=== PATIENT | male | born 1985 | race Caucasian/White ===

== ENCOUNTER 2016-09-20 02:33 | Emergency (ER) | payer OTHER ==
[~2016-09-20] VITALS: Ht 175.3 cm; Wt 83.9 kg
[~2016-09-20 02:33] MED LIST: AMOXICILLIN500 M3 PO; DIFLUCAN200 M1 PO; FLEXERIL10 MG PO; INVOKANA100 MG PO; MOTRIN800 MG PO; MULTIVITAMIN1 TAB PO; NEXIUM 40MG40 MG PO; PERCOCET 325 MG1 TA2 PO; PERCOCET 5-3251 EACH PO; VALIUM5 M1 PO; ZOFRAN ODT4 M1 PO; ZOFRAN ODT4 MG PO; ZOFRAN4 M2 PO
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
[2016-09-20] MEDS ORDERED: KEFLEX500 M1 PO (04:25)
[2016-09-20 04:32] VITALS: BP 134/67
== END 2016-09-20 04:35 ==
LOC: ERH 02:33
DX: S61.411A Laceration without foreign body of right hand, initial encounter (principal); W25.XXXA Contact with sharp glass, initial encounter; Y93.89 Activity, other specified; Y92.009 Unspecified place in unspecified non-institutional (private) residence as the place of occurrence of the external cause
CPT/HCPCS: 73130-RT; 90471; 90714; J1885

== ENCOUNTER 2016-09-23 09:24 | Emergency (ER) | payer OTHER ==
[~2016-09-23] VITALS: Ht 175.3 cm; Wt 83.9 kg
[~2016-09-23 09:24] MED LIST changes: +KEFLEX500 M1 PO
[2016-09-23 09:29] VITALS: BP 147/89
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
[2016-09-23] MEDS ORDERED: IBUPROFEN800 M1 PO (10:00)
== END 2016-09-23 10:00 ==
LOC: ERH 09:24
DX: S63.91XA Sprain of unspecified part of right wrist and hand, initial encounter (principal); W22.8XXA Striking against or struck by other objects, initial encounter; Y92.9 Unspecified place or not applicable; Y93.9 Activity, unspecified

== ENCOUNTER 2017-09-22 20:40 | Emergency (ER) | payer OTHER ==
[~2017-09-22] VITALS: Ht 175.3 cm; Wt 88.5 kg
[~2017-09-22 20:40] MED LIST changes: +DILAUDID2 M1 PO; +IBUPROFEN800 M1 PO; +ZOFRAN ODT4 M1 SL
[2017-09-22 20:43] VITALS: BP 156/76
[2017-09-22 22:27] LABS: ABSOLUTE BASOPHIL COUNT 0.1 /CUMM (0.0-0.2); ABSOLUTE EOSINOPHIL COUNT 0.3 /CUMM (0.0-0.7); ABSOLUTE GRANULOCYTE CT 5.8 /CUMM (1.4-6.5); ABSOLUTE LYMPH COUNT 2.4 /CUMM (1.2-3.4); ABSOLUTE MONOCYTE COUNT 1.1 /CUMM (0.10-0.60); BASOPHIL % 0.7 % (0.0-2.0); EOSINOPHIL % 3.5 % (0-5); MEAN CORPUSCULAR HGB 29.2 PG (27.0-31.0); MEAN CORPUSCULAR HGB CONC 32.8 G/DL (33.0-37.0); MEAN PLATELET VOLUME 9.1 FL (7.4-10.4); PLATELET COUNT 309 /CUMM (130-400); RBC DISTRIBUTION WIDTH 12.8 % (11.5-14.5); RED BLOOD CELL CT 5.16 /CUMM (4.70-6.10); WHITE BLOOD CELL COUNT 9.7 /CUMM (4.8-10.8)
--- NOTE | 2017-09-22 22:52 | ED NECK/BACK PAIN COMPLAINT ---
History of Present Illness General Chief Complaint: Low Back Pain/Injury Stated Complaint: BEING TREATED FOR PANCREATITIS, NOW BACK PAIN Source: patient, old records Exam Limitations: no limitations Vital Signs & Intake/Output Vital Signs & Intake/Output Vital Signs Date Time Temp Pulse Resp B/P B/P Pulse O2 O2 Flow FiO2 Mean Ox Delivery Rate 09/22 2042 97.5 86 18 156/76 99 Room Air Allergies Coded Allergies: caffeine (Intermediate, PANIC ATTACK 09/18/17) Uncoded Allergies: SNUGGLE FABRIC SOFTENER (Intermediate, HIVES 04/21/12) Reconcile Medications Hydromorphone HCl (Dilaudid) 2 MG TABLET 1 TAB PO TID PAIN Ibuprofen 800 MG TABLET 1 TAB PO TID PRN PAIN Multivitamin (Multiple Vitamins) 1 EACH TABLET 1 TAB PO DAILY SUPPLEMENT ( Reported) Ondansetron (Zofran Odt) 4 MG TAB.RAPDIS 1 TAB SL TID PRN NAUSEA Ondansetron HCl (Zofran) 4 MG TABLET 1 TAB PO Q6-8P nausea Triage Note: PT STATES THAT HE IS BEING TREATED FOR PANCREATITIS AND THAT HE HAS BEEN HAVING INCREASED MID BACK PAIN SINCE LAST THURSDAY, STATES THAT HE HAS BEEN TAKING PERCOCET AND LEFT OVER DILAUDID WITH NO RELIEF. Triage Nurses Notes Reviewed? yes HPI: Patient presents for evaluation of a constant throbbing and severe low back pain due to his pancreatitis. Patient states that he is still having some abdominal soreness but typically gets back pain in association with his pancreatitis. He is currently taking Percocet and Flexeril as provided by his primary care physician. He states he just started Flexeril today but none of the medications seem to be resolving his pain. He has been unable to sleep. He denies any associated urinary or fecal incontinence or urinary retention. He likewise denies paresthesias of the lower extremities. This past medical history is pertinent for spinal stenosis of the neck and degenerative changes of the lumbar spine. Past History Travel History Traveled to [place] past 21 day No Medical History Any Pertinent Medical History? 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 No Review of Systems Review of Systems Constitutional: Reports: no symptoms. Eyes: Reports: no symptoms. Ears, Nose, Throat, Mouth: Reports: no symptoms. Respiratory: Reports: no symptoms. Cardiovascular: Reports: no symptoms. Gastrointestinal/Abdominal: Reports: no symptoms. Musculoskeletal: Reports: see HPI. Skin: Reports: no symptoms. Neurological/Psychological: Reports: no symptoms. All Other Systems: Reviewed and Negative Physical Exam Physical Exam Neck: SEE BELOW Comments: Gen.: Well-nourished, well-developed, no acute respiratory distress. Head: Normocephalic, atraumatic. Eyes: Normal inspection bilaterally Ears: Normal inspection bilaterally Nose: Normal inspection Throat/mouth : Moist mucosa Neck: Supple, full range of motion, no goiter Heart: Regular rate and rhythm Lungs: Quiet respirations Back: Normal range of motion, nontender, no ecchymoses or soft tissue swelling Abdomen: Soft, mild epigastric abdominal tenderness without rebound or guarding, nondistended, normal bowel sounds Extremities: Normal range of motion grossly, equal radial pulses, no cyanosis clubbing or edema, no saddle paresthesias, lower extremity deep tendon reflexes normal, no straight leg raise sign Neurologic: Cranial nerves grossly intact, speech is clear Skin: warm and dry Psychiatric: Calm, cooperative, no apparent delusions or hallucinations Core Measures CVA/TIA Diagnosis: No Progress Differential Diagnosis: cauda equina syn, herniated disc, myofascial strain, PANCREATITIS Plan of Care: Orders Procedure Date/time Status LIPASE 09/23 2143 Complete COMPREHENSIVE METABOLIC PANEL 09/23 2143 Complete CBC WITHOUT DIFFERENTIAL 09/23 2143 Complete Current Medications Sig/Shae Start time Last Medication Dose Stop Time Status Admin Indomethacin Sodium 25 MG ONCE ONE 09/22 2329 AC (Indocin 25 MG Cap) 09/22 2330 Prednisone 40 MG ONCE ONE 09/22 2300 CAN 09/22 230 Laboratory Tests 09/22/17 2219: Anion Gap 14, Estimated GFR > 60, BUN/Creatinine Ratio 7.5, Glucose 152 H, Calcium 9.7, Total Bilirubin 0.8, AST 35, ALT 41, Alkaline Phosphatase 116, Total Protein 7.2, Albumin 4.3, Globulin 2.9, Albumin/Globulin Ratio 1.5, Lipase 858 H, CBC w Diff NO MAN DIFF REQ, RBC 5.16, MCV 89.0, MCH 29.2, MCHC 32.8 L, RDW 12.8, MPV 9.1, Gran % 60.0, Lymphocytes % 25.0, Monocytes % 10.8 H, Eosinophils % 3.5, Basophils % 0.7, Absolute Granulocytes 5.8, Absolute Lymphocytes 2.4, Absolute Monocytes 1.1 H, Absolute Eosinophils 0.3, Absolute Basophils 0.1 Comments: Patient states that he has had chronic back pain independent of his episodes of pancreatitis. It is typical for him however to get back pain associated with his pancreatitis and even after it begins resolving. He had an MRI scan of his back as recently as last year and declined imaging here in the emergency department. 09/22/2017 11:16:52 PM upon my return to the room for a reevaluation and updated, Wilner was sleeping. He woke easily and I have updated him on test results including the greatly improved lipase level. He prefers to stay away from prednisone as an anti-inflammatory and favors changing the ibuprofen to something a little stronger. I will add Valium to increase muscle relaxation. He will follow up with his primary care physician this week. Departure Departure Disposition: HOME OR SELF CARE Condition: Stable Clinical Impression Primary Impression: Back pain Qualifiers: Back pain location: low back pain Chronicity: chronic Back pain laterality: midline Sciatica presence: without sciatica Qualified Codes: M54.5 - Low back pain; G89.29 - Other chronic pain Secondary Impressions: Pancreatitis Referrals: Sabas STARK,[employer] [facility] (PCP/Family) Additional Instructions: Rest, no exertion or heavy lifting. Continue the Percocet and Flexeril as previously prescribed. Discontinue the ibuprofen and begin taking indomethacin as prescribed. He may also add Valium for muscle spasms. Follow-up with your primary care physician this week for reevaluation and possible modification of your medications. Return if any concerns or sudden worsening. Thank you for choosing the [facility] for your care. It was a pleasure to serve you today. Wilton Sheikh M.D. [facility] Departure Forms: Customer Survey General Discharge Information Prescriptions: Current Visit Scripts Diazepam (Valium) 1 TAB PO TID PRN MUSCLE SPASMS #12 TAB Indomethacin 1 CAP PO TID PRN BACK PAIN #21 CAP with food
[2017-09-22] MEDS ORDERED: INDOMETHACIN50 M1 PO (23:23)
[2017-09-22] MEDS ORDERED: VALIUM2 M1 PO (23:23)
== END 2017-09-22 23:28 ==
LOC: ERH 20:40
PROVIDERS: Emergency Medicine
DX: K85.90 Acute pancreatitis without necrosis or infection, unspecified (principal); M54.5 Low back pain

== ENCOUNTER 2018-03-26 11:41 | Inpatient (IN) | payer OTHER ==
[~2018-03-26] VITALS: Ht 175.3 cm; Wt 87.1 kg
[~2018-03-26 11:41] MED LIST changes: +INDOMETHACIN50 M1 PO; +VALIUM2 M1 PO
[2018-03-26 12:12] LABS: ABSOLUTE BASOPHIL COUNT 0.1 /CUMM (0.0-0.2); ABSOLUTE EOSINOPHIL COUNT 0.2 /CUMM (0.0-0.7); ABSOLUTE GRANULOCYTE CT 11.3 /CUMM (1.4-6.5); ABSOLUTE LYMPH COUNT 2.1 /CUMM (1.2-3.4); ABSOLUTE MONOCYTE COUNT 0.7 /CUMM (0.10-0.60); BASOPHIL % 0.7 % (0.0-2.0); EOSINOPHIL % 1.4 % (0-5); GRANULOCYTE % 78.6 % (42.2-75.2); HEMATOCRIT 45.4 % (42-52); MEAN CORPUSCULAR HGB 30.1 PG (27.0-31.0); MEAN CORPUSCULAR HGB CONC 34.6 G/DL (33.0-37.0); MEAN CORPUSCULAR VOLUME 86.9 FL (80.0-94.0); MEAN PLATELET VOLUME 9.3 FL (7.4-10.4); PLATELET COUNT 305 /CUMM (130-400); RBC DISTRIBUTION WIDTH 12.9 % (11.5-14.5); RED BLOOD CELL CT 5.22 /CUMM (4.70-6.10); WHITE BLOOD CELL COUNT 14.4 /CUMM (4.8-10.8)
--- NOTE | 2018-03-26 12:15 | ED GI/GU/ABDOMINAL COMPLAINT ---
History of Present Illness General Chief Complaint: General Adult Stated Complaint: SIB DR. CHAMBERS FOR ADMISSION Source: patient Exam Limitations: no limitations Vital Signs & Intake/Output Vital Signs & Intake/Output Vital Signs Date Time Temp Pulse Resp B/P B/P Pulse O2 O2 Flow FiO2 Mean Ox Delivery Rate 03/26 1445 Room Air 03/26 1354 16 129/78 Room Air 03/26 1145 98.1 85 20 124/78 98 Room Air Allergies Coded Allergies: caffeine (Intermediate, PANIC ATTACK 03/26/18) Uncoded Allergies: SNUGGLE FABRIC SOFTENER (Intermediate, HIVES 04/21/12) Reconcile Medications Esomeprazole (Nexium) 40 MG CAPSULE.DR 1 CAP PO DAILY GI (Reported) Insulin Degludec (Tresiba Flextouch U-100) 100 UNIT/ML (3 ML) INSULN.PEN 40-50 UNITS SC DAILY DIABETES (Reported) Lipase/Protease/Amylase (Viokace 20,880-78,300 Units Tb) 20.9-78.3K TABLET 1 TAB PO TID GI (Reported) Ondansetron (Zofran Odt) 4 MG TAB.RAPDIS 1 TAB SL TID PRN NAUSEA Oxycodone HCl/Acetaminophen (Oxycodone-Acetaminophen 5-325) 5 MG-325 MG TABLET 1 TAB PO Q6-PRN PRN PAIN (Reported) Triage Note: TRIAGE: PT TO ER C/C UPPER ABD AND MID BACK PAIN X COUPLE WEEKS, CONSTANT SINCE ONSET. STATES HE HAS BEEN DEALING WITH DR CHAMBERS WHO SENT HIM TO ER FOR ADMISSION. +N/-V/-D. COMPLETE PANCRETECTOMY SCHEDULED FOR AUGUST. STATES HE WAS BORN WITH PANCREATITIS WHICH WILL EVENTUALLY TURN INTO CANCER. ANA RIOS EVALUATING PATIENT AT TRIAGE. Triage Nurses Notes Reviewed? 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 Patient has a history of hereditary pancreatitis born with. Comes in with upper abdominal pain and nausea. He is scheduled for a total pancreatectomy and February out of [place]. Denies any changes in bowel movement. Patient has been on oral pain medication at home with no relief. (Jack PEREZ,Angel) Past History Travel History Traveled to [place] past 21 day No Medical History Any Pertinent Medical History? 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 No (Angel Llanes) Review of Systems Review of Systems Constitutional: Reports: no symptoms. EENTM: Reports: no symptoms. Respiratory: Reports: no symptoms. Cardiovascular: Reports: no symptoms. GI: Reports: see HPI. Genitourinary: Reports: no symptoms. Musculoskeletal: Reports: no symptoms. Skin: Reports: no symptoms. Neurological/Psychological: Reports: no symptoms. Hematologic/Endocrine: Reports: no symptoms. Immunologic/Allergic: Reports: no symptoms. All Other Systems: Reviewed and Negative (Angel Llanes) Physical Exam Physical Exam General Appearance: well developed/nourished, no apparent distress, alert, awake Head: atraumatic, normal appearance Eyes: Bilateral: normal appearance. Ears, Nose, Throat, Mouth: hearing grossly normal, moist mucous membrane Neck: normal inspection Respiratory: normal breath sounds, no respiratory distress Gastrointestinal: soft, tenderness (EPIGASTRIC) Back: normal inspection Extremities: normal range of motion Neurologic/Psych: awake, alert, oriented x 3, normal gait Skin: intact, normal color Core Measures ACS in differential dx? No Sepsis Present: No Sepsis Focused Exam Completed? No (Angel Llanes) Progress Differential Diagnosis: appendicitis, biliary colic, pancreatitis, PUD/GERD Plan of Care: Orders Procedure Date/time Status HEPATIC FUNCTION PANEL 03/27 600 Active CBC WITHOUT DIFFERENTIAL 03/27 600 Active BASIC ELECTROLYTES PLUS BUN&CR 03/27 600 Active Nothing by Mouth 03/26 D Active Pathway - chart 03/26 1536 Active House Staff 03/26 1536 Active Patient Data 03/26 1507 Active Admit to inpatient 03/26 1505 Active Vital Signs 03/26 1505 Active Code Status 03/26 1505 Active Intake & Output 03/26 1445 Active URINALYSIS 03/26 1148 Complete TROPONIN LEVEL 03/26 1148 Complete MAGNESIUM 03/26 1148 Complete LIPASE 03/26 1148 Complete ETHANOL 03/26 1148 Complete COMPREHENSIVE METABOLIC PANEL 03/26 1148 Complete CBC WITHOUT DIFFERENTIAL 03/26 1148 Complete AMYLASE 03/26 1148 Complete EKG 03/26 1148 Active VTE Mechanical Prophylaxis 03/26 UNK Active FingerStick- Glucose 03/26 UNK Active Current Medications Sig/Shae Start time Last Medication Dose Stop Time Status Admin Enoxaparin Sodium 40 MG DAILY 03/28 0900 AC (Lovenox) Famotidine 20 MG BID 03/26 2100 AC (Pepcid) Dextrose/Sodium 1,000 ML ONCE ONE 03/26 1600 AC Chloride 03/27 1159 (D5-Normal Saline) Hydromorphone HCl 2 MG Q4-6 PRN PRN 03/26 1545 AC (Dilaudid) Ondansetron HCl 4 MG Q6P PRN 03/26 1530 AC (Zofran) Lactated Ringer's 1,000 ML .Q5H 03/26 1515 AC (Lactated Ringers) Tetanus/Diphtheria 0.5 ML ONCE ONE 03/26 1515 CAN Toxoids Adsorbed 03/26 1516 (Decavac) Laboratory Tests 03/26/18 1455: Urine Color YEL, Urine Clarity CLEAR, Urine pH 6.0, Ur Specific [place] 1.010, Urine Protein NEG, Urine Ketones NEG, Urine Nitrite NEG, Urine Bilirubin NEG, Urine Urobilinogen 0.2, Ur Leukocyte Esterase NEG, Ur Microscopic EXAM NOT REQUIRED, Urine Hemoglobin NEG, Urine Glucose 500 H 03/26/18 1159: Anion Gap 12, Estimated GFR > 60, BUN/Creatinine Ratio 12.9, Glucose 215 H, Calcium 9.5, Magnesium 1.7, Total Bilirubin 0.4, AST 38, ALT 94 H, Alkaline Phosphatase 118, Troponin I < 0.01, Total Protein 7.4, Albumin 4.6, Globulin 2.8 , Albumin/Globulin Ratio 1.6, Amylase 104, Lipase 662 H, CBC w Diff NO MAN DIFF REQ, RBC 5.22, MCV 86.9, MCH 30.1, MCHC 34.6, RDW 12.9, MPV 9.3, Gran % 78.6 H, Lymphocytes % 14.6 L, Monocytes % 4.7, Eosinophils % 1.4, Basophils % 0.7, Absolute Granulocytes 11.3 H, Absolute Lymphocytes 2.1, Absolute Monocytes 0.7 H, Absolute Eosinophils 0.2, Absolute Basophils 0.1, Serum Alcohol < 10.0 Initial ED EKG: none (Angel Llanes) Departure Departure Disposition: STILL A PATIENT Condition: Stable Clinical Impression Primary Impression: Acute pancreatitis Referrals: Sabas STARK,[facility] (PCP/Family) Departure Forms: Customer Survey General Discharge Information Admission Note Spoke With: Jose L Uribe MD Documentation of Exam: Documentation of any treatments & extenuating circumstances including Concerns Regarding Discharge (functional status, medication knowledge or non-compliance, living conditions, etc.) that warrant an admission rather than observation: IV pain control. IV fluids. GI consultation. Bowel rest. (Angel Llanes) PA/CLINICAL VETERINARIAN Co-Sign Statement Statement: ED Attending supervision documentation- x I saw and evaluated the patient. I have also reviewed all the pertinent lab results and diagnostic results. I agree with the findings and the plan of care as documented in the PA's/CLINICAL VETERINARIAN's documentation. [] I have reviewed the ED Record and agree with the PA's/CLINICAL VETERINARIAN's documentation. [] Additions or exceptions (if any) to the PAs/CLINICAL VETERINARIAN's note and plan are summarized below: [] (Gil STARK,Enrrique)
[2018-03-26] MEDS ORDERED: TRESIBA FL100 UNIT/1 SC (12:40)
[2018-03-26] MEDS ORDERED: NEXIUM40 M1 PO (12:40)
[2018-03-26] MEDS ORDERED: VIOKACE 20,8801 EACH PO (12:42)
[2018-03-26] MEDS ORDERED: OXYCODONE-ACET1 EACH PO (12:45)
--- NOTE | 2018-03-26 14:24 | Cons- Gastroenterology ---
General Information and HPI Consulting Request Date of Consult: 03/26/18 Requested By: ANA Power Reason for Consult: Pancreatitis, abdominal pain. Increased LFTs. Source of Information: patient, old records Exam Limitations: no limitations History of Present Illness: Mr. Richmond is a 32-year-old male with a history of hereditary pancreatitis who presented to the emergency room today with abdominal pain radiating to his back which has been getting progressively worse over the past several weeks. He has a history of hereditary pancreatitis and has had numerous flares over the years. In general he does relatively well managing his symptoms at home and over the previous 5 years he had been doing ok with this, but over the past year his symptoms seem to be worsening and over the past week he hasn't been able to manage his pain at home. He has seen a surgeon in [place] and is currently scheduled for a total pancreatecomy in August of next year. He has been trying to manage his symptoms with percocet at home, which I have been prescribing to him in limited quantities and he has been reluctant to come to the hospital as he doesn 't want to take time off from work. He has also been started on pancreatic enzymes over the past few months, but this doesn't appear to be helping with improving his pain. He called the office yesterday morning and was asking what else could be done and I recommended a short admission for bowel rest to help with his current flare with the plan to come in after work today, but his pain worsened to the point that he came in this morning. He has not had any high fevers and he is without any recent vomiting, but he is quite nausous. He denies any diarrhea, recal bleeding or melena. In the ER he was afebrile and hemodynamically stable. He has been given IV Dilaudid for his abdominal pain with some improvement, but not complete relief. His lipase is moderately elevated approximate 650 he also has a mildly elevated ALT of 92 with a normal bilirubin. Allergies/Medications Allergies: Coded Allergies: caffeine (Intermediate, PANIC ATTACK 03/26/18) Uncoded Allergies: SNUGGLE FABRIC SOFTENER (Intermediate, HIVES 04/21/12) Home Med List: Esomeprazole (Nexium) 40 MG CAPSULE. 1 CAP PO DAILY GI (Reported) Insulin Degludec (Tresiba Flextouch U-100) 100 UNIT/ML (3 ML) INSULN.PEN 40-50 UNITS SC DAILY DIABETES (Reported) Lipase/Protease/Amylase (Viokace 20,880-78,300 Units Tb) 20.9-78.3K TABLET 1 TAB PO TID GI (Reported) Ondansetron (Zofran Odt) 4 MG TAB.RAPDIS 1 TAB SL TID PRN NAUSEA Oxycodone HCl/Acetaminophen (Oxycodone-Acetaminophen 5-325) 5 MG-325 MG TABLET 1 TAB PO Q6-PRN PRN PAIN (Reported) Oxycodone HCl/Acetaminophen (Percocet 5-325 MG Tablet) 5 MG-325 MG TABLET 1 TAB PO BID severe pain . Current Medications: Current Medications Sig/Shae Start time Last Medication Dose Route Stop Time Status Admin Hydromorphone HCl 0 .STK-MED ONE 03/26 1224 DC .ROUTE Hydromorphone HCl 1 MG ONCE ONE 03/26 1215 DC 03/26 IV 03/26 1216 1229 Ondansetron HCl 0 .STK-MED ONE 03/26 1225 DC .ROUTE Ondansetron HCl 4 MG ONCE ONE 03/26 1200 DC 03/26 IV 03/26 1201 1229 Sodium Chloride 1,000 ML BOLUS ONE 03/26 1200 DC 03/26 IV 03/26 1259 1229 Past History Travel History Traveled to [place] past 21 day No Medical History Neurological: NONE EENT: NONE Cardiovascular: NONE Respiratory: NONE Gastrointestinal: GERD, PANCREATITIS (BORN WITH) (familial) Hepatic: NONE Renal: NONE Musculoskeletal: NONE Psychiatric: NONE Endocrine: diabetes (diet controlled) Blood Disorders: NONE Cancer(s): NONE 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 EENTM: Denies: no symptoms. Cardiovascular: Denies: no symptoms. Respiratory: Denies: no symptoms. GI: Reports: see HPI. Genitourinary: Denies: no symptoms. Musculoskeletal: Denies: no symptoms. Skin: Denies: no symptoms. Neurological/Psychological: Denies: no symptoms. Hematologic/Endocrine: Denies: no symptoms. Immunologic/Allergic: Denies: no symptoms. All Other Systems: Reviewed and Negative Exam & Diagnostic Data Vital Signs and I&O Vital Signs Date Time Temp Pulse Resp B/P B/P Pulse O2 O2 Flow FiO2 Mean Ox Delivery Rate 03/26 1145 98.1 85 20 124/78 98 Room Air Intake & Output 03/26 1600 03/26 04003/24 0400 Intake Total Output Total Balance Patient 192 lb Weight Physical Exam General Appearance: well developed/nourished, alert, awake, mild distress Head: atraumatic, normal appearance Eyes: Bilateral: normal appearance. Ears, Nose, Throat: normal pharynx, normal ENT inspection, moist mucus membranes Neck: normal inspection, supple, full range of motion Respiratory: normal breath sounds, chest non-tender, no respiratory distress Cardiovascular: regular rate/rhythm Gastrointestinal: normal bowel sounds, soft, tenderness Rectal: deferred Back: normal inspection, normal range of motion Extremities: normal inspection, no edema Neurologic/Psych: no motor/sensory deficits, awake, alert, oriented x 3 Skin: intact, normal color, warm/dry Results Pertinent Lab Results: Laboratory Tests 03/26 1159 Chemistry Sodium (137 - 145 mmol/L) 136 L Potassium (3.5 - 5.1 mmol/L) 4.0 Chloride (98 - 107 mmol/L) 99 Carbon Dioxide (22 - 30 mmol/L) 25 Anion Gap (5 - 16) 12 BUN (9 - 20 mg/dL) 9 Creatinine (0.7 - 1.2 mg/dL) 0.7 Estimated GFR (>60 ml/min) > 60 BUN/Creatinine Ratio (7 - 25 %) 12.9 Glucose (65 - 99 mg/dL) 215 H Calcium (8.4 - 10.2 mg/dL) 9.5 Magnesium (1.6 - 2.3 mg/dL) 1.7 Total Bilirubin (0.2 - 1.3 mg/dL) 0.4 AST (17 - 59 U/L) 38 ALT (21 - 72 U/L) 94 H Alkaline Phosphatase (< 127 U/L) 118 Troponin I (<0.11 ng/ml) < 0.01 Total Protein (6.3 - 8.2 g/dL) 7.4 Albumin (3.5 - 5.0 g/dL) 4.6 Globulin (1.9 - 4.2 gm/dL) 2.8 Albumin/Globulin Ratio (1.1 - 2.2 %) 1.6 Amylase (30 - 110 U/L) 104 Lipase (23 - 300 U/L) 662 H Hematology CBC w Diff NO MAN DIFF REQ WBC (4.8 - 10.8 /CUMM) 14.4 H RBC (4.70 - 6.10 /CUMM) 5.22 Hgb (14.0 - 18.0 G/DL) 15.7 Hct (42 - 52 %) 45.4 MCV (80.0 - 94.0 FL) 86.9 MCH (27.0 - 31.0 PG) 30.1 MCHC (33.0 - 37.0 G/DL) 34.6 RDW (11.5 - 14.5 %) 12.9 Plt Count (130 - 400 /CUMM) 305 MPV (7.4 - 10.4 FL) 9.3 Gran % (42.2 - 75.2 %) 78.6 H Lymphocytes % (20.5 - 51.1 %) 14.6 L Monocytes % (1.7 - 9.3 %) 4.7 Eosinophils % (0 - 5 %) 1.4 Basophils % (0.0 - 2.0 %) 0.7 Absolute Granulocytes (1.4 - 6.5 /CUMM) 11.3 H Absolute Lymphocytes (1.2 - 3.4 /CUMM) 2.1 Absolute Monocytes (0.10 - 0.60 /CUMM) 0.7 H Absolute Eosinophils (0.0 - 0.7 /CUMM) 0.2 Absolute Basophils (0.0 - 0.2 /CUMM) 0.1 Toxicology Serum Alcohol (<10 MG/DL) < 10.0 Assessment/Plan Assessment/Recommendations: Assessment: Mr. Russell is a 32-year-old male with a history of refractory pancreatitis who over the past week has been having worsening symptoms which she has not been able to successfully manage at home. During his persistent symptoms I feel he should be admitted for at least a few days for bowel rest and for aggressive rehydration to help with his current flare. As he is afebrile and has a relatively benign abdominal exam and only has a mildly elevated white count do not feel it imaging is necessary at this time. Hopefully his symptoms will improve in a few days so that he can be discharged home and ultimately proceed with this plan for a total pancreatectomy early next year. Of note, he has a mildly elelvated ALT, but his other lfts are normal and he is without any signs of obstrucive jaundice and I suspect this may in part be secondary to the acetaminophin in the percocet he has been taking and I don't feel any further intervention is necessary for this at this time. Recommendations: 1. Admit patient to the medical floor and keep nothing by mouth. 2. Administer lactated Ringer solution IV rate of 220 50 mL an hour for the next 24-48 hours. 3. Administer IV analgesia as needed and would avoid acetaminophin. 4. Follow daily LFTs. 5. Would hold off on imaging unless he spikes a high temperature or if he has a significant increase in his liver function tests (ie. his bilirubin and/or alk phos). 6. Start on IV Pepcid 20 mg twice a day. 7. Administer anti-emetics (IV zofran) as needed I will continue to follow this patient and make further recommendations based on his clinical course and results of repeat blood work. Problem List: 1. Pancreatitis 2. GERD (gastroesophageal reflux disease) 3. Abdominal pain Copies To: Sabas STARK,[employer] [facility]. Consult Acknowledgment - Thank you for your consult request.
--- NOTE | 2018-03-26 15:03 | History & Physical ---
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 Smith of gastroenterology with a cheif complaint of abdominal pain radiating to the back. Last major episode of pancreatitis was 2014 where patient was admitted to [facility] for acute pancreatitis. He has been following closely with Dr. Smith of Gastroenterology. Patients abdominal pain has been incrasingly worse in the past few days described to be a 9/10, diffuse through the abdomen and radiating to the back. He is scheduled for a total pancreatectomy on 2018 with a surgeon in [place]. Patient has seen Dr. Bell of Endocrinology on previous visit and was on metformin and actos in the past but was discontinued due to GI side effects and higher sugars on Actos. Patient now takes Triseba, Viokase, Zofran and pain medications by Dr. Smith. He has associated nausea on this admission. Denied any vomiting, diarrhea, fevers, chills, chest pain or shortness of breath. Family hx: Familial Pancreatitis (Mother, Maternal Grandfather, Neice, Cousin) - grandfather passed at age 50 with pancreatic cancer Social: Occasional smoking; no longer drinks alcohol; denies illicit drug use PCP: Dr. Sabas Jason GI: Dr. Smith Endocrinology: Dr. Bell Allergies/Medications Allergies: Coded Allergies: caffeine (Intermediate, PANIC ATTACK 03/26/18) Uncoded Allergies: SNUGGLE FABRIC SOFTENER (Intermediate, HIVES 04/21/12) Home Med list Esomeprazole (Nexium) 40 MG CAPSULE. 1 CAP PO DAILY GI (Reported) Insulin Degludec (Tresiba Flextouch U-100) 100 UNIT/ML (3 ML) INSULN.PEN 40-50 UNITS SC DAILY DIABETES (Reported) Lipase/Protease/Amylase (Viokace 20,880-78,300 Units Tb) 20.9-78.3K TABLET 1 TAB PO TID GI (Reported) Ondansetron (Zofran Odt) 4 MG TAB.RAPDIS 1 TAB SL TID PRN NAUSEA Oxycodone HCl/Acetaminophen (Oxycodone-Acetaminophen 5-325) 5 MG-325 MG TABLET 1 TAB PO Q6-PRN PRN PAIN (Reported) Past History Travel History Traveled to [place] past 21 day No Medical History Neurological: NONE EENT: NONE Cardiovascular: NONE Respiratory: NONE Gastrointestinal: GERD, PANCREATITIS (BORN WITH) (familial) Hepatic: NONE Renal: NONE Musculoskeletal: NONE Psychiatric: NONE Endocrine: diabetes (diet controlled) Blood Disorders: NONE Cancer(s): NONE 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 Exam & Diagnostic Data Last 24 Hrs of Vital Signs/I&O Vital Signs Date Time Temp Pulse Resp B/P B/P Pulse O2 O2 Flow FiO2 Mean Ox Delivery Rate 03/26 1445 Room Air 03/26 1354 16 129/78 Room Air 03/26 1145 98.1 85 20 124/78 98 Room Air Intake & Output 03/26 1600 03/26 0800 03/26 0000 Intake Total 999 Output Total Balance 999 Intake, IV 999 Patient 192 lb Weight Physical Exam General Appearance Alert, Oriented X3, Cooperative, Mild Distress Skin No Rashes Skin Temp/Moisture Exam: Warm/Dry HEENT Mucous Membr. moist/pink Cardiovascular Normal S1, Normal S2 Lungs Clear to Auscultation, Normal Air Movement Abdomen diffuse epigastric tenderness; no rebound; no gaurding Neurological Strength at 5/5 X4 Ext Extremities No Edema, Normal Pulses Vascular Pulses Symmetrical Last 24 Hrs of Labs/Evaristo: Laboratory Tests 03/26/18 1455: Urine Color YEL, Urine Clarity CLEAR, Urine pH 6.0, Ur Specific [place] 1.010, Urine Protein NEG, Urine Ketones NEG, Urine Nitrite NEG, Urine Bilirubin NEG, Urine Urobilinogen 0.2, Ur Leukocyte Esterase NEG, Ur Microscopic EXAM NOT REQUIRED, Urine Hemoglobin NEG, Urine Glucose 500 H 03/26/18 1159: Anion Gap 12, Estimated GFR > 60, BUN/Creatinine Ratio 12.9, Glucose 215 H, Calcium 9.5, Magnesium 1.7, Total Bilirubin 0.4, AST 38, ALT 94 H, Alkaline Phosphatase 118, Troponin I < 0.01, Total Protein 7.4, Albumin 4.6, Globulin 2.8 , Albumin/Globulin Ratio 1.6, Amylase 104, Lipase 662 H, CBC w Diff NO MAN DIFF REQ, RBC 5.22, MCV 86.9, MCH 30.1, MCHC 34.6, RDW 12.9, MPV 9.3, Gran % 78.6 H, Lymphocytes % 14.6 L, Monocytes % 4.7, Eosinophils % 1.4, Basophils % 0.7, Absolute Granulocytes 11.3 H, Absolute Lymphocytes 2.1, Absolute Monocytes 0.7 H, Absolute Eosinophils 0.2, Absolute Basophils 0.1, Serum Alcohol < 10.0 Assessment/Plan Assessment: 32 year old male with history of hereditary pancreatitis who presented to ED by Dr. Smith with abdominal pain radiating to his back getting worse over the past several weeks. Numerous flares over the years, last admit to [place] on 12/2014. Significant family history including grandfather who passed of pancreatic cancer at age 50. Scheduled for total pancreatecomy in August 2018. Pancreatic enzyme regimen at home over past few months. Came to ED by Dr. smith for bowel rest and rehydration. EMERGENCY DEPARTMENT: Dilaudid 1mg X 2, NS bolus, Zofran 4mg Vitals: 98.1, 85, 20, 124/78. 98% RA Labs: WBC: 14.4, Hgb: 15.7, HCT: 45.5, MCV: 86.9, Plt: 305 Chemistry: Na: 136, K 4.0, Cl 99, CO2 25, BUN 9, Cr: 0.7, Glucose 215 M.7, Calcium 9.5 ALK P: 118, AST: 38, ALT: 94 Albumin 4.6 LIPASE: 662, AMYLASE: 104 Utox: < 10 PROBLEM LIST: 1. Pancreatitis secondary to Hereditary 2. GERD PLAN: * Admit to general medicine floor * NPO with LR @ 200/hr and Dextrose @50/hr * Pain Control: Dilaudid 2mg q4-6, IV/PO Tylenol * Trend LFTs * Imaging if patient spikes fever or increases in LFTs * Pepcid IV 20mg BID * Nause: IV Zofran PRN Code Status: Full Code DVT PPx: Lovenox Diet: NPO for now As Ranked By This Provider Problem List: 1. Pancreatitis 2. Abdominal pain 3. GERD (gastroesophageal reflux disease) Core Measures/Misc (03/22) Acute Coronary Syndrome ACS Diagnosis: No Congestive Heart Failure Congestive Heart Failure Diagnosis No Cerebrovascular Accident CVA/TIA Diagnosis: No VTE (View Protocol) VTE Risk Factors Other No Mechanical VTE Prophylaxis d/t N/A MechProphylax Ordered No VTE Pharm Prophylaxis d/t NA PharmProphylax ordered Sepsis (View protocol) Sepsis Present: No If YES complete Sepsis Event Note If YES complete Sepsis Event Note Zac STARK,[facility] 03/26/18 1522: Core Measures/Misc (03/22) Sepsis (View protocol) If YES complete Sepsis Event Note If YES complete Sepsis Event Note Resident Review Statement Resident Statement: examined this patient, discussed with international marketing manager, agreed with international marketing manager Other Findings: 32-year-old with a significant past medical history of hereditary pancreatitis ( PRSS1 (SERINE PROTEASE) gene mutation with recurrent episodes, scheduled for pancreatectomy next year, presents with progressively worsening stereotypical abdominal pain with radiation to his back. He has leukocytosis but is afebrile. Impression Acute on chronic pancreatitis. Etiology is hereditary pancreatitis. Type 2 diabetes Plan Admit to general medicine floor Bowel rest via n.p.o. Accu check q6h Lactated Ringer 200 ml/hr D5NS 50 ml/hr Novolin npo ssc Watch for hemoconcentration Low threshold for imaging if patient develops any fever or increased abdominal pain. Strict ins and outs IV hydromorphone for severe pain Zofran IV 4 mg every 4-6 hours as needed for nausea vomiting Pepcid 20 mg IV twice daily per GI recommendation Code status:FC DVT: enoxaparin
[2018-03-26 17:58] VITALS: BP 120/84
[2018-03-26 21:01] VITALS: BP 120/86
--- NOTE | 2018-03-27 06:30 | PN- Housestaff ---
Torres Arias 03/27/18 0630: Subjective Follow-up For: Hereditary Pancreatitis Subjective: Pt seen and examined at bedside this morning. Review of Systems Constitutional: Denies: see HPI. Objective Last 24 Hrs of Vital Signs/I&O Vital Signs Date Time Temp Pulse Resp B/P B/P Pulse O2 O2 Flow FiO2 Mean Ox Delivery Rate 03/27 0632 97.9 68 20 118/80 96 Room Air 03/26 2101 97.9 67 18 120/86 96 Room Air 03/26 1758 98.7 66 20 120/84 99 Room Air 03/26 1722 97.8 61 17 112/66 98 Room Air 03/26 1445 Room Air 03/26 1354 16 129/78 Room Air 03/26 1145 98.1 85 20 124/78 98 Room Air Intake & Output 03/27 0800 03/27 0000 03/26 1600 Intake Total 2000 800 999 Output Total Balance 2000 800 999 Intake, IV 2000 500 999 Intake, Oral 300 Patient 192 lb 192 lb Weight Physical Exam General Appearance: Alert, Oriented X3, Cooperative, Mild Distress Skin: No Rashes Skin Temp/Moisture Exam: Warm/Dry Sepsis Skin Exam (color): Normal for Ethnicity HEENT: Mucous Membr. moist/pink Neck: Supple Cardiovascular: Normal S1, Normal S2 Lungs: Clear to Auscultation Abdomen: diffuse epigastric tenderness; no rebound; no gaurding Neurological: Normal Speech, Strength at 5/5 X4 Ext Extremities: No Edema Vascular: Normal Pulses Current Medications: Current Medications Sig/Shae Start time Last Medication Dose Route Stop Time Status Admin Dextrose/Sodium 1,000 ML ONCE ONE 03/26 1600 AC 03/26 Chloride IV 03/27 1159 1826 Enoxaparin Sodium 40 MG DAILY 03/28 0900 AC SC Famotidine 20 MG BID 03/26 2100 AC 03/26 IV 2052 Hydromorphone HCl 2 MG Q4-6 PRN PRN 03/26 1545 AC 03/27 IV 0325 Hydromorphone HCl 0 .STK-MED ONE 03/26 1453 DC .ROUTE Hydromorphone HCl 1 MG ONCE ONE 03/26 1445 DC 03/26 IV 03/26 1446 1454 Hydromorphone HCl 0 .STK-MED ONE 03/26 1224 DC .ROUTE Hydromorphone HCl 1 MG ONCE ONE 03/26 1215 DC 03/26 IV 03/26 1216 1229 Insulin Human Regular 0 Q6 03/26 1800 AC 03/26 SC 1856 Lactated Ringer's 1,000 ML .Q5H 03/26 1515 AC 03/27 IV 0610 Ondansetron HCl 4 MG Q6P PRN 03/26 1530 AC 03/26 IV 1846 Ondansetron HCl 0 .STK-MED ONE 03/26 1225 DC .ROUTE Ondansetron HCl 4 MG ONCE ONE 03/26 1200 DC 03/26 IV 03/26 1201 1229 Sodium Chloride 1,000 ML BOLUS ONE 03/26 1200 DC 03/26 IV 03/26 1259 1229 Tetanus/Diphtheria 0.5 ML ONCE ONE 03/26 1515 CAN Toxoids Adsorbed IM 03/26 1516 Last 24 Hrs of Lab/Evaristo Results Last 24 Hrs of Labs/Mics: Laboratory Tests 03/26/18 1455: Urine Color YEL, Urine Clarity CLEAR, Urine pH 6.0, Ur Specific [place] 1.010, Urine Protein NEG, Urine Ketones NEG, Urine Nitrite NEG, Urine Bilirubin NEG, Urine Urobilinogen 0.2, Ur Leukocyte Esterase NEG, Ur Microscopic EXAM NOT REQUIRED, Urine Hemoglobin NEG, Urine Glucose 500 H 03/26/18 1159: Anion Gap 12, Estimated GFR > 60, BUN/Creatinine Ratio 12.9, Glucose 215 H, Calcium 9.5, Magnesium 1.7, Total Bilirubin 0.4, AST 38, ALT 94 H, Alkaline Phosphatase 118, Troponin I < 0.01, Total Protein 7.4, Albumin 4.6, Globulin 2.8 , Albumin/Globulin Ratio 1.6, Amylase 104, Lipase 662 H, CBC w Diff NO MAN DIFF REQ, RBC 5.22, MCV 86.9, MCH 30.1, MCHC 34.6, RDW 12.9, MPV 9.3, Gran % 78.6 H, Lymphocytes % 14.6 L, Monocytes % 4.7, Eosinophils % 1.4, Basophils % 0.7, Absolute Granulocytes 11.3 H, Absolute Lymphocytes 2.1, Absolute Monocytes 0.7 H, Absolute Eosinophils 0.2, Absolute Basophils 0.1, Serum Alcohol < 10.0 Assessment/Plan Assessment: 32 year old male with history of hereditary pancreatitis who presented to ED by Dr. Pink with abdominal pain radiating to his back getting worse over the past several weeks. Numerous flares over the years, last admit to [facility] on 12/2014. Significant family history including grandfather who passed of pancreatic cancer at age 50. Scheduled for total pancreatecomy in August 2018. Pancreatic enzyme regimen at home over past few months. Came to ED by Dr. pink for bowel rest and rehydration. PROBLEM LIST: 1. Hereditary Pancreatitis 2. GERD PLAN: * Continue LR @ 200/hr + Dextrose @ 50/hr in separate lines * Patient to remain NPO for further bowel rest * Pain control: Dilaudid mg q4-6 + IV/PO Tylenol * Monitor for fevers/LFTs - consider imaging if elevated/spike fever * Nausea: IV Zofran PRN * GERD: IV Pepcid 20mg BID Code Status: Full Code DVT PPx: Lovenox Diet: NPO for bowel rest Problem List: 1. Acute pancreatitis 2. GERD (gastroesophageal reflux disease) Pain Ratin Pain Location: diffuse abdomen to back Pain Goal: Pain 4 or less Pain Plan: as per pain pathway Tomorrow's Labs & Rationales: cbc - elevated white count Hepatic function - pancreatitis Darwin STARK,William 03/27/18 1211: Attending MD Review Statement Attending Statement Attending MD Statement: examined this patient, discuss w/resident/PA/SENIOR EMBEDDED SOFTWARE ENGINEER, agreed w/resident/PA/SENIOR EMBEDDED SOFTWARE ENGINEER, reviewed EMR data (avail), discussed with nursing, discussed with case mgmt, amended to note Attending Assessment/Plan: Patient seen and examined. Resting comfortably and not in acute distress. Reports significant pain in the early hours of this morning not improved. Currently requesting for decrease dose of analgesic therapy. Denies nausea vomiting and loose for 2 started his meals. On examination abdomen is soft extending the epigastric region with no rebound or guarding. Recommendations: -Begin clear liquid diet. -Decrease dose of Dilaudid to 1 mg every 6 as needed. -Continue IV hydration. Decrease rate to 1 25 cc an hour. -Mobilize patient as tolerated. -Continue insulin coverage. -Once regular diet has been resumed will restart patient on his full dose of insulin.
[2018-03-27 06:32] VITALS: BP 118/80
[2018-03-27 08:36] LABS: ABSOLUTE BASOPHIL COUNT 0.1 /CUMM (0.0-0.2); ABSOLUTE EOSINOPHIL COUNT 0.3 /CUMM (0.0-0.7); ABSOLUTE GRANULOCYTE CT 4.7 /CUMM (1.4-6.5); ABSOLUTE LYMPH COUNT 2.5 /CUMM (1.2-3.4); ABSOLUTE MONOCYTE COUNT 0.9 /CUMM (0.10-0.60); BASOPHIL % 0.6 % (0.0-2.0); EOSINOPHIL % 3.2 % (0-5); GRANULOCYTE % 55.6 % (42.2-75.2); MEAN CORPUSCULAR HGB CONC 34.3 G/DL (33.0-37.0); MEAN CORPUSCULAR VOLUME 87.4 FL (80.0-94.0); MEAN PLATELET VOLUME 9.4 FL (7.4-10.4); PLATELET COUNT 246 /CUMM (130-400); RED BLOOD CELL CT 4.39 /CUMM (4.70-6.10); WHITE BLOOD CELL COUNT 8.5 /CUMM (4.8-10.8)
[2018-03-27 10:08] LABS: HEMATOCRIT 38.4 % (42-52)
--- NOTE | 2018-03-27 12:44 | PN- Gastroenterology ---
Assessment/Plan GI Assessment/Recommendations: Assessment: Mr. Richmond is a 32-year-old male with hereditary pancreatitis who is currently in the midst of a flare which he was attempting, unsuccessfully, to control as an outpatient who has had some improvement with bowel rest and IV fluids and IV analgesia, but he still has some pain. He has been without any high temperature spikes and he feels like he may be ready to try clear liquids. His mildly elevated alt has improved from yesterday and his decreasing BUN is evidence that he is being adequately hydrated and is also a good prognostic sign. Recommendations: 1. Continue IV fluids at the current rate for another 8-12 hours and then reassess volume status and can likely change to a maintenance rate at that time. 2. Continue IV analgesia and IV anti-emetics as needed 3. Continue IV pepcid 4. Follow daily lytes, but don't need to follow LFTs, or lipase 5. To consider advancing to a clear liquid diet later today or in the am if he continues to improve. I will continue to follow this patient and make further recommendations based on his clinical course and results of repeat blood work. Problem List: 1. Abdominal pain 2. Pancreatitis Subjective Subjective: He is somewhat improved today, but he still has some abdominal pain. He is still nothing by mouth, but he has cut down on the frequency of his IV pain medication. He has not had any fevers or any vomiting. Review of Systems Constitutional: Denies: fever, malaise, weakness. EENTM: Denies: no symptoms. Cardiovascular: Denies: no symptoms. Respiratory: Denies: no symptoms. Gastrointestinal: Reports: see HPI. Musculoskeletal: Denies: no symptoms. Skin: Denies: no symptoms. Neurological/Psychological: Denies: no symptoms. Objective Vital Signs and I&Os Vital Signs Date Time Temp Pulse Resp B/P B/P Pulse O2 O2 Flow FiO2 Mean Ox Delivery Rate 03/27 0632 97.9 68 20 118/80 96 Room Air 03/26 2101 97.9 67 18 120/86 96 Room Air 03/26 1758 98.7 66 20 120/84 99 Room Air 03/26 1722 97.8 61 17 112/66 98 Room Air 03/26 1445 Room Air 03/26 1354 16 129/78 Room Air Intake & Output 03/27 1600 03/27 0400 03/26 1600 03/26 0400 03/25 1600 03/25 0400 Intake Total 1999 800 999 Output Total Balance 1999 800 999 Intake, IV 2000 500 999 Intake, Oral 300 Patient 192 lb 192 lb Weight Physical Exam General Appearance: well developed/nourished, no apparent distress, alert, comfortable Head: atraumatic Neck: supple Respiratory: normal breath sounds, chest non-tender, no respiratory distress Abdomen: normal bowel sounds, soft, tenderness Back: normal inspection Extremities: no edema Current Medications: Current Medications Sig/Shae Start time Last Medication Dose Route Stop Time Status Admin Acetaminophen 1,000 MG Q6 03/27 1200 AC 03/27 IV 1200 Acetaminophen 0 .STK-MED ONE 03/27 1144 DC IV Dextrose/Sodium 1,000 ML ONCE ONE 03/26 1600 DC 03/26 Chloride IV 03/27 1159 1826 Enoxaparin Sodium 40 MG DAILY 03/28 0900 AC SC Famotidine 20 MG BID 03/26 2100 AC 03/27 IV 1036 Hydromorphone HCl 1 MG Q6-PRN PRN 03/27 1200 AC 03/27 IV 1200 Hydromorphone HCl 2 MG Q4-6 PRN PRN 03/26 1545 AC 03/27 IV 0731 Hydromorphone HCl 0 .STK-MED ONE 03/26 1453 DC .ROUTE Hydromorphone HCl 1 MG ONCE ONE 03/26 1445 DC 03/26 IV 03/26 1446 1454 Insulin Human Regular 0 Q6 03/26 1800 AC 03/26 SC 1856 Lactated Ringer's 1,000 ML .Q5H 03/26 1515 AC 03/27 IV 0610 Ondansetron HCl 4 MG Q6P PRN 03/26 1530 AC 03/27 IV 0635 Sodium Chloride 1,000 ML BOLUS ONE 03/26 1200 DC 03/26 IV 03/26 1259 1229 Tetanus/Diphtheria 0.5 ML ONCE ONE 03/26 1515 CAN Toxoids Adsorbed IM 03/26 1516 Results Pertinent Lab Results: Laboratory Tests 03/27 03/26 0653 1455 Chemistry Sodium (137 - 145 mmol/L) 138 Potassium (3.5 - 5.1 mmol/L) 3.9 Chloride (98 - 107 mmol/L) 105 Carbon Dioxide (22 - 30 mmol/L) 25 Anion Gap (5 - 16) 8 BUN (9 - 20 mg/dL) 7 L Creatinine (0.7 - 1.2 mg/dL) 0.6 L Estimated GFR (>60 ml/min) > 60 BUN/Creatinine Ratio (7 - 25 %) 11.7 Total Bilirubin (0.2 - 1.3 mg/dL) 0.4 Direct Bilirubin (< 0.4 mg/dL) 0.1 AST (17 - 59 U/L) 34 ALT (21 - 72 U/L) 62 Alkaline Phosphatase (< 127 U/L) 85 Total Protein (6.3 - 8.2 g/dL) 5.5 L Albumin (3.5 - 5.0 g/dL) 3.1 L Hematology CBC w Diff NO MAN DIFF REQ WBC (4.8 - 10.8 /CUMM) 8.5 RBC (4.70 - 6.10 /CUMM) 4.39 L Hgb (14.0 - 18.0 G/DL) 13.1 L Hct (42 - 52 %) 38.4 L MCV (80.0 - 94.0 FL) 87.4 MCH (27.0 - 31.0 PG) 30.0 MCHC (33.0 - 37.0 G/DL) 34.3 RDW (11.5 - 14.5 %) 13.0 Plt Count (130 - 400 /CUMM) 246 MPV (7.4 - 10.4 FL) 9.4 Gran % (42.2 - 75.2 %) 55.6 Lymphocytes % (20.5 - 51.1 %) 30.0 Monocytes % (1.7 - 9.3 %) 10.6 H Eosinophils % (0 - 5 %) 3.2 Basophils % (0.0 - 2.0 %) 0.6 Absolute Granulocytes (1.4 - 6.5 /CUMM) 4.7 Absolute Lymphocytes (1.2 - 3.4 /CUMM) 2.5 Absolute Monocytes (0.10 - 0.60 /CUMM) 0.9 H Absolute Eosinophils (0.0 - 0.7 /CUMM) 0.3 Absolute Basophils (0.0 - 0.2 /CUMM) 0.1 Urines Urine Color (YEL,AMB,STR) YEL Urine Clarity (CLEAR) CLEAR Urine pH (5.0 - 8.0) 6.0 Ur Specific [place] (1.001 - 1.035) 1.010 Urine Protein (NEG,<30 MG/DL) NEG Urine Ketones (NEG) NEG Urine Nitrite (NEG) NEG Urine Bilirubin (NEG) NEG Urine Urobilinogen (0.1 - 1.0 EU/dl) 0.2 Ur Leukocyte Esterase (NEG) NEG Ur Microscopic EXAM NOT REQUIRED Urine Hemoglobin (NEG) NEG Urine Glucose (N MG/DL) 500 H 03/26 1159 Chemistry Sodium (137 - 145 mmol/L) 136 L Potassium (3.5 - 5.1 mmol/L) 4.0 Chloride (98 - 107 mmol/L) 99 Carbon Dioxide (22 - 30 mmol/L) 25 Anion Gap (5 - 16) 12 BUN (9 - 20 mg/dL) 9 Creatinine (0.7 - 1.2 mg/dL) 0.7 Estimated GFR (>60 ml/min) > 60 BUN/Creatinine Ratio (7 - 25 %) 12.9 Glucose (65 - 99 mg/dL) 215 H Calcium (8.4 - 10.2 mg/dL) 9.5 Magnesium (1.6 - 2.3 mg/dL) 1.7 Total Bilirubin (0.2 - 1.3 mg/dL) 0.4 AST (17 - 59 U/L) 38 ALT (21 - 72 U/L) 94 H Alkaline Phosphatase (< 127 U/L) 118 Troponin I (<0.11 ng/ml) < 0.01 Total Protein (6.3 - 8.2 g/dL) 7.4 Albumin (3.5 - 5.0 g/dL) 4.6 Globulin (1.9 - 4.2 gm/dL) 2.8 Albumin/Globulin Ratio (1.1 - 2.2 %) 1.6 Amylase (30 - 110 U/L) 104 Lipase (23 - 300 U/L) 662 H Hematology CBC w Diff NO MAN DIFF REQ WBC (4.8 - 10.8 /CUMM) 14.4 H RBC (4.70 - 6.10 /CUMM) 5.22 Hgb (14.0 - 18.0 G/DL) 15.7 Hct (42 - 52 %) 45.4 MCV (80.0 - 94.0 FL) 86.9 MCH (27.0 - 31.0 PG) 30.1 MCHC (33.0 - 37.0 G/DL) 34.6 RDW (11.5 - 14.5 %) 12.9 Plt Count (130 - 400 /CUMM) 305 MPV (7.4 - 10.4 FL) 9.3 Gran % (42.2 - 75.2 %) 78.6 H Lymphocytes % (20.5 - 51.1 %) 14.6 L Monocytes % (1.7 - 9.3 %) 4.7 Eosinophils % (0 - 5 %) 1.4 Basophils % (0.0 - 2.0 %) 0.7 Absolute Granulocytes (1.4 - 6.5 /CUMM) 11.3 H Absolute Lymphocytes (1.2 - 3.4 /CUMM) 2.1 Absolute Monocytes (0.10 - 0.60 /CUMM) 0.7 H Absolute Eosinophils (0.0 - 0.7 /CUMM) 0.2 Absolute Basophils (0.0 - 0.2 /CUMM) 0.1 Toxicology Serum Alcohol (<10 MG/DL) < 10.0
[2018-03-27 14:21] VITALS: BP 103/53
[2018-03-27 22:00] VITALS: BP 124/76
[2018-03-28 06:48] VITALS: BP 125/77
--- NOTE | 2018-03-28 10:13 | PN- Housestaff ---
Aubrey Steele 03/28/18 1006: Subjective Follow-up For: Hereditary to pancreatitis flareup Subjective: Patient was seen and examined today, he said that he was feeling better and did not have any overnight events. He is toleratinf diet well and He was wondering if he could go home and if the IV fluids can be discontinued. Review of Systems Constitutional: Reports: see HPI. Objective Last 24 Hrs of Vital Signs/I&O Vital Signs Date Time Temp Pulse Resp B/P B/P Pulse O2 O2 Flow FiO2 Mean Ox Delivery Rate 03/28 0648 98.1 72 18 125/77 97 Room Air 03/27 2200 97.4 81 18 124/76 96 Room Air 03/27 1421 97.8 72 18 103/53 94 Intake & Output 03/28 1600 03/28 0800 03/28 0000 Intake Total 1400 700 Output Total Balance 1400 700 Intake, IV 1400 700 Physical Exam General Appearance: Alert, Oriented X3, Cooperative, No Acute Distress Cardiovascular: Regular Rate, No Murmurs Lungs: Clear to Auscultation, Normal Air Movement Abdomen: Normal Bowel Sounds, Soft, No Tenderness, No Hepatospenomegaly, No Masses Neurological: Normal Speech, Strength at 5/5 X4 Ext, Normal Tone, Sensation Intact Current Medications: Current Medications Sig/Shae Start time Last Medication Dose Route Stop Time Status Admin Acetaminophen 1,000 MG Q6 03/27 1200 AC 03/28 IV 0531 Acetaminophen 0 .STK-MED ONE 03/27 1144 DC IV Dextrose/Sodium 1,000 ML Q20H 03/27 2000 AC Chloride IV Dextrose/Sodium 1,000 ML Q13H 03/27 1330 DC 03/27 Chloride IV 1918 Dextrose/Sodium 1,000 ML ONCE ONE 03/26 1600 DC 03/26 Chloride IV 03/27 1159 1826 Enoxaparin Sodium 40 MG DAILY 03/28 0900 AC SC Famotidine 20 MG BID 03/26 2100 AC 03/27 IV 2011 Hydromorphone HCl 2 MG Q4P PRN 03/27 1945 AC 03/28 PO 0533 Hydromorphone HCl 1 MG Q6-PRN PRN 03/27 1200 DC 03/27 IV 1643 Hydromorphone HCl 2 MG Q4-6 PRN PRN 03/26 1545 AC 03/27 IV 0731 Insulin Human Regular 0 Q6 03/26 1800 AC 03/27 SC 1909 Lactated Ringer's 1,000 ML .Q8H 03/26 1515 AC 03/28 IV 0406 Ondansetron HCl 4 MG Q6P PRN 03/26 1530 AC 03/27 IV 0635 Last 24 Hrs of Lab/Evaristo Results Last 24 Hrs of Labs/Mics: Laboratory Tests 03/28/18 0852: CBC w Diff Pending, WBC Pending, RBC Pending, Hgb Pending, Hct Pending, MCV Pending, MCH Pending, MCHC Pending, RDW Pending, Plt Count Pending, MPV Pending Assessment/Plan Assessment: 32 year old male with history of hereditary pancreatitis who presented to ED by Dr. Pink with abdominal pain radiating to his back getting worse over the past several weeks. Numerous flares over the years, last admit to [facility] on 12/2014. Significant family history including grandfather who passed of pancreatic cancer at age 50. Scheduled for total pancreatecomy in August 2018. Pancreatic enzyme regimen at home over past few months. Came to ED by Dr. pink for bowel rest and rehydration. PROBLEM LIST: 1. Hereditary Pancreatitis 2. GERD PLAN: * Discontinuefluids, advance oral feeds * Patient denied pain initially, but later asked for pain meds, His CTPMP shows refill on 03/14 for 20 days,.will Refer to GI for outpatient management of pancreatitis and follow up. * Pain control: Dilaudid mg q4-6 + IV/PO Tylenol * Monitor for fevers/LFTs - consider imaging if elevated/spike fever * Nausea: IV Zofran PRN * GERD: IV Pepcid 20mg BID Code Status: Full Code DVT PPx: Lovenox Diet: NPO for bowel rest Problem List: 1. Acute pancreatitis Pain Ratin Pain Location: pancreatic pain Pain Goal: Remain pain free Pain Plan: as discussed Tomorrow's Labs & Rationales: none William Granados MD 03/28/18 1039: Attending MD Review Statement Attending Statement Attending MD Statement: examined this patient, discuss w/resident/PA/WRAPPER OPENER, agreed w/resident/PA/WRAPPER OPENER, reviewed EMR data (avail), discussed with nursing, discussed with case mgmt, amended to note Attending Assessment/Plan: Patient seen and examined. Resting comfortably unless in any acute distress. No issues overnight. Reports tolerating his clear liquid diet with no issues. Reports that his abdominal discomfort has improved. Is requesting for his diet to be advanced today and will be discharged home. He is willing to follow-up with gastroenterology service as an outpatient. On examination abdomen is nondistended, soft with mild tenderness in the epigastric region with no rebound or guarding. He is afebrile. Hemodynamically stable. He has no leukocytosis on his labs. He had a downward shift in his hemoglobin level that has now stabilized and was likely due to hemodilution. His diet may be advanced. If he tolerates and he is cleared by his creative perfumer he may be discharged today to follow-up with the GI service as an outpatient. He is scheduled to undergo pancreatectomy sometime next year. Patient is requesting opiate analgesics for pain control. Review of his CT WINDOW DISPLAY DESIGNER shows that he has been receiving prescriptions regularly from his gastroenterology service. Strongly recommend that his GI service refer him to a pain management service to follow-up as an outpatient as he is likely to keep on experiencing pain from chronic pancreatitis until he has his surgery which patient has deferred until next year.
--- NOTE | 2018-03-28 10:17 | Patient Discharge Instructions ---
Discharge Instructions General Discharge Information You were seen/treated for: Acute pancreatitis Special Instructions: Please follow-up with your primary care doctor after discharge Please follow-up with gastroenterology after discharge Please return to ED if there is worsening in her clinical condition increased pain and inability to tolerate diet Diet Additional DIET Information: As tolerated Activity Activity Self Limited: Yes Acute Coronary Syndrome Inclusion Criteria At DC or during hospital stay patient has or had the following: ACS DIAGNOSIS No Discharge Core Measures Meds if any: Prescribed or Continued at Discharge Meds if any: NOT Prescribed or Continued at Discharge Congestive Heart Failure Inclusion Criteria At DC or during hospital stay patient has or had the following: CHF DIAGNOSIS No Discharge Core Measures Meds if any: Prescribed or Continued at Discharge Meds if any: NOT Prescribed or Continued at Discharge Cerebrovascular accident Inclusion Criteria At DC or during hospital stay patient has or had the following: CVA/TIA Diagnosis No Discharge Core Measures Meds if any: Prescribed or Continued at Discharge Meds if any: NOT Prescribed or Continued at Discharge Venous thromboembolism Inclusion Criteria VTE Diagnosis No VTE Type NONE VTE Confirmed by (Test) NONE Discharge Core Measures - Per Current guidelines, there needs to be overlap - treatment for the first 5 days of Warfarin therapy. - If discharged on Warfarin prior to 5 days of - overlap therapy, the patient will need to be - assessed for post discharge needs including - *Post discharge parental anticoagulation - *Warfarin and/or parental anticoagulation education - *Follow up date to check INR post discharge At least 5 days overlap therapy as Inpatient No Meds if any: Prescribed or Continued at Discharge Note: Overlap Therapy is Warfarin and Anticoagulant Meds if any: NOT Prescribed or Continued at Discharge
[2018-03-28 10:22] LABS: ABSOLUTE BASOPHIL COUNT 0 /CUMM (0.0-0.2); ABSOLUTE EOSINOPHIL COUNT 0.2 /CUMM (0.0-0.7); ABSOLUTE GRANULOCYTE CT 4.1 /CUMM (1.4-6.5); ABSOLUTE LYMPH COUNT 1.5 /CUMM (1.2-3.4); ABSOLUTE MONOCYTE COUNT 0.6 /CUMM (0.10-0.60); BASOPHIL % 0.6 % (0.0-2.0); EOSINOPHIL % 2.9 % (0-5); GRANULOCYTE % 62.9 % (42.2-75.2); HEMATOCRIT 39.1 % (42-52); MEAN CORPUSCULAR HGB 30.1 PG (27.0-31.0); MEAN CORPUSCULAR HGB CONC 34.4 G/DL (33.0-37.0); MEAN CORPUSCULAR VOLUME 87.4 FL (80.0-94.0); MEAN PLATELET VOLUME 9.6 FL (7.4-10.4); PLATELET COUNT 265 /CUMM (130-400); RED BLOOD CELL CT 4.48 /CUMM (4.70-6.10); WHITE BLOOD CELL COUNT 6.4 /CUMM (4.8-10.8)
[2018-03-28] MEDS ORDERED: PERCOCET 5-3251 EACH PO ×2 (11:34→11:35)
--- NOTE | 2018-03-28 12:45 | PN- Gastroenterology ---
Assessment/Plan GI Assessment/Recommendations: Assessment: Mr. Richmond is a 32 year old male with hereditary pancreatitis who is having a current flare which has improved with a short hospitalization for bowel rest, IVF and IV analgesia. As he is doing well and his pain has improved and he is tolerating liquids now I am hopeful that his diet can be advanced and he can be discharged home later today or in the am. Recommendations: 1. Advance diet as tolerarted. 2. Transition to PO analgesia as needed 3. As long as he is tolerating PO intake and his pain is under good control with PO analgesia would d/c him home later today or in the am and would restart pancreatic enzyme supplementation on discharge. I will sign off at this time and ask that he follow up with me as scheduled on April 09. Please recontact should any new GI issues arise prior to him being discharged. Subjective Subjective: Pt dooing well today tolerating liquids. Notes that he still has some pain, but it has improved from when he was admitted. no vomiting. Objective Vital Signs and I&Os Vital Signs Date Time Temp Pulse Resp B/P B/P Pulse O2 O2 Flow FiO2 Mean Ox Delivery Rate 03/28 0648 98.1 72 18 125/77 97 Room Air 03/27 2200 97.4 81 18 124/76 96 Room Air 03/27 1421 97.8 72 18 103/53 94 Intake & Output 03/28 1600 03/28 0400 03/27 1600 03/27 0400 03/26 1600 03/26 0400 Intake Total 5751 576 5875 800 999 Output Total Balance 1493 427 4015 800 999 Intake, IV 0078 386 5386 500 999 Intake, Oral 100 300 Patient 192 lb 192 lb Weight Physical Exam General Appearance: well developed/nourished, no apparent distress, alert, comfortable Head: atraumatic, normal appearance Neck: normal inspection, supple Respiratory: normal breath sounds, chest non-tender, no respiratory distress Cardiovascular: regular rate/rhythm Abdomen: normal bowel sounds, soft, only minimal tenderness Back: normal inspection, normal range of motion Neurologic/Psychiatric: no motor/sensory deficits, awake, alert, oriented x 3 Skin: intact, normal color Current Medications: Current Medications Sig/Shae Start time Last Medication Dose Route Stop Time Status Admin Acetaminophen 1,000 MG Q6 03/27 1200 DCD 03/28 IV 0531 Dextrose/Sodium 1,000 ML Q20H 03/27 2000 DC Chloride IV Dextrose/Sodium 1,000 ML Q13H 03/27 1330 DC 03/27 Chloride IV 1918 Enoxaparin Sodium 40 MG DAILY 03/28 0900 DCD SC Famotidine 20 MG BID 03/26 2100 DCD 03/27 IV 2011 Hydromorphone HCl 2 MG Q4P PRN 03/27 1945 DCD 03/28 PO 1134 Hydromorphone HCl 1 MG Q6-PRN PRN 03/27 1200 DC 03/27 IV 1643 Hydromorphone HCl 2 MG Q4-6 PRN PRN 03/26 1545 DCD 03/27 IV 0731 Insulin Human Regular 0 Q6 03/26 1800 DCD 03/27 SC 1909 Lactated Ringer's 1,000 ML .Q8H 03/26 1515 DCD 03/28 IV 0406 Ondansetron HCl 4 MG Q6P PRN 03/26 1530 DCD 03/27 IV 0635 Results Pertinent Lab Results: Laboratory Tests 03/28 03/27 0852 0653 Chemistry Sodium (137 - 145 mmol/L) 139 138 Potassium (3.5 - 5.1 mmol/L) 4.0 3.9 Chloride (98 - 107 mmol/L) 104 105 Carbon Dioxide (22 - 30 mmol/L) 27 25 Anion Gap (5 - 16) 8 8 BUN (9 - 20 mg/dL) 5 L 7 L Creatinine (0.7 - 1.2 mg/dL) 0.6 L 0.6 L Estimated GFR (>60 ml/min) > 60 > 60 BUN/Creatinine Ratio (7 - 25 %) 8.3 11.7 Total Bilirubin (0.2 - 1.3 mg/dL) 0.4 Direct Bilirubin (< 0.4 mg/dL) 0.1 AST (17 - 59 U/L) 34 ALT (21 - 72 U/L) 62 Alkaline Phosphatase (< 127 U/L) 85 Total Protein (6.3 - 8.2 g/dL) 5.5 L Albumin (3.5 - 5.0 g/dL) 3.1 L Hematology CBC w Diff NO MAN DIFF REQ NO MAN DIFF REQ WBC (4.8 - 10.8 /CUMM) 6.4 8.5 RBC (4.70 - 6.10 /CUMM) 4.48 L 4.39 L Hgb (14.0 - 18.0 G/DL) 13.5 L 13.1 L Hct (42 - 52 %) 39.1 L 38.4 L MCV (80.0 - 94.0 FL) 87.4 87.4 MCH (27.0 - 31.0 PG) 30.1 30.0 MCHC (33.0 - 37.0 G/DL) 34.4 34.3 RDW (11.5 - 14.5 %) 13.0 13.0 Plt Count (130 - 400 /CUMM) 265 246 MPV (7.4 - 10.4 FL) 9.6 9.4 Gran % (42.2 - 75.2 %) 62.9 55.6 Lymphocytes % (20.5 - 51.1 %) 24.0 30.0 Monocytes % (1.7 - 9.3 %) 9.6 H 10.6 H Eosinophils % (0 - 5 %) 2.9 3.2 Basophils % (0.0 - 2.0 %) 0.6 0.6 Absolute Granulocytes (1.4 - 6.5 /CUMM) 4.1 4.7 Absolute Lymphocytes (1.2 - 3.4 /CUMM) 1.5 2.5 Absolute Monocytes (0.10 - 0.60 /CUMM) 0.6 0.9 H Absolute Eosinophils (0.0 - 0.7 /CUMM) 0.2 0.3 Absolute Basophils (0.0 - 0.2 /CUMM) 0 0.1 03/26 03/26 1455 1159 Chemistry Sodium (137 - 145 mmol/L) 136 L Potassium (3.5 - 5.1 mmol/L) 4.0 Chloride (98 - 107 mmol/L) 99 Carbon Dioxide (22 - 30 mmol/L) 25 Anion Gap (5 - 16) 12 BUN (9 - 20 mg/dL) 9 Creatinine (0.7 - 1.2 mg/dL) 0.7 Estimated GFR (>60 ml/min) > 60 BUN/Creatinine Ratio (7 - 25 %) 12.9 Glucose (65 - 99 mg/dL) 215 H Calcium (8.4 - 10.2 mg/dL) 9.5 Magnesium (1.6 - 2.3 mg/dL) 1.7 Total Bilirubin (0.2 - 1.3 mg/dL) 0.4 AST (17 - 59 U/L) 38 ALT (21 - 72 U/L) 94 H Alkaline Phosphatase (< 127 U/L) 118 Troponin I (<0.11 ng/ml) < 0.01 Total Protein (6.3 - 8.2 g/dL) 7.4 Albumin (3.5 - 5.0 g/dL) 4.6 Globulin (1.9 - 4.2 gm/dL) 2.8 Albumin/Globulin Ratio (1.1 - 2.2 %) 1.6 Amylase (30 - 110 U/L) 104 Lipase (23 - 300 U/L) 662 H Hematology CBC w Diff NO MAN DIFF REQ WBC (4.8 - 10.8 /CUMM) 14.4 H RBC (4.70 - 6.10 /CUMM) 5.22 Hgb (14.0 - 18.0 G/DL) 15.7 Hct (42 - 52 %) 45.4 MCV (80.0 - 94.0 FL) 86.9 MCH (27.0 - 31.0 PG) 30.1 MCHC (33.0 - 37.0 G/DL) 34.6 RDW (11.5 - 14.5 %) 12.9 Plt Count (130 - 400 /CUMM) 305 MPV (7.4 - 10.4 FL) 9.3 Gran % (42.2 - 75.2 %) 78.6 H Lymphocytes % (20.5 - 51.1 %) 14.6 L Monocytes % (1.7 - 9.3 %) 4.7 Eosinophils % (0 - 5 %) 1.4 Basophils % (0.0 - 2.0 %) 0.7 Absolute Granulocytes (1.4 - 6.5 /CUMM) 11.3 H Absolute Lymphocytes (1.2 - 3.4 /CUMM) 2.1 Absolute Monocytes (0.10 - 0.60 /CUMM) 0.7 H Absolute Eosinophils (0.0 - 0.7 /CUMM) 0.2 Absolute Basophils (0.0 - 0.2 /CUMM) 0.1 Toxicology Serum Alcohol (<10 MG/DL) < 10.0 Urines Urine Color (YEL,AMB,STR) YEL Urine Clarity (CLEAR) CLEAR Urine pH (5.0 - 8.0) 6.0 Ur Specific [place] (1.001 - 1.035) 1.010 Urine Protein (NEG,<30 MG/DL) NEG Urine Ketones (NEG) NEG Urine Nitrite (NEG) NEG Urine Bilirubin (NEG) NEG Urine Urobilinogen (0.1 - 1.0 EU/dl) 0.2 Ur Leukocyte Esterase (NEG) NEG Ur Microscopic EXAM NOT REQUIRED Urine Hemoglobin (NEG) NEG Urine Glucose (N MG/DL) 500 H
== END 2018-03-28 12:05 | DRG 440 ==
LOC: ERH 11:41 → ERHI 15:05 → ENRESERV 15:48 → ENTRNSPT 17:25 → EDTRNSPTSTS 17:33 → 2NB 17:44 → CMPTRNSPT 17:46 → 2NB 17:55 → ENPENDDIS 03-28 11:23 → 2NB 03-28 12:05
PROVIDERS: Physical Medicine & Rehabilitation Pain Medicine; Physician Assistant Medical; Student in an Organized Health Care Education/Training Program
DX: K85.90 Acute pancreatitis without necrosis or infection, unspecified (principal); K21.9 Gastro-esophageal reflux disease without esophagitis; E11.9 Type 2 diabetes mellitus without complications; Z79.4 Long term (current) use of insulin; R79.89 Other specified abnormal findings of blood chemistry
CPT/HCPCS: 2NBP; 36592; 81003; 82436; 93005; 93010; G0480; J0131; J1650; J1815; J2405; J7042